=== PATIENT | female | born 1945 | race Caucasian/White ===

== ENCOUNTER → 2017-01-08 | Outpatient (CLI) | payer MEDICARE, BC ==
--- NOTE | ~2017-01-08 | US6 ---
[facility] A Service of [facility] RADIOLOGY TEXT RESULTS PATIENT: CAROLINE PINZON LOCATION: [facility] : 43 UNIT #: [id number] AGE: [address]: Ru Lozano MD SEX: F ORDER DR: [id number] [facility] [address] [place], [place] [address] [id number] O MR#: [id number] Acc #: [id number] NAME: CAROLINE PINZON : 1945 SEX: F STUDY DATE/TIME: 01/08/2017 10:42 UNIT: [facility] ROOM: STUDY DESCRIPTION: US Abdominal Limited Attending Physician: Ru Lozano M.D. Referring Physician: Ru Lozano M.D. Ordering Physician: Ru Lozano M.D. Primary Care Physician: Amelia Pyle M.D. MEDICAL IMAGING REPORT This report is preliminary unless electronic signature is present EXAM Right upper quadrant ultrasound, 01/08/2017 INDICATION Nonalcoholic steatohepatitis diagnosed 2 years ago. Elevated liver function tests, appendectomy, cholecystectomy, abdominal pain for years. TECHNIQUE Sonographic imaging of the right upper quadrant was performed. COMPARISON 11/15/2015 FINDINGS The pancreas is not well visualized or assessed. Visualized aspects are unremarkable. The gallbladder is surgically absent. There is a coarsened hepatic echotexture with imaging features most characteristic of report history of cirrhosis. No focal liver mass, ascites or intrahepatic ductal dilatation. The liver measures 17.9 cm long axis. The right kidney is nonobstructed measuring 13.9 cm long axis. There is an upper pole cyst in the right kidney measuring up to 3.9 cm, larger than on the prior study but otherwise maintaining benign characteristics. No internal color-flow identified. Extrahepatic common bile duct measures 5.0-6.0 mm. IMPRESSION 1. Imaging features most characteristic of reported history of cirrhosis. No ascites or new focal liver mass. 2. Surgical absence of the gallbladder with the extrahepatic common bile duct in the top normal range of normal with a diameter of 5.0-6.0 mm. 3. Interval enlargement of an upper pole renal cyst on the right now STS. [facility] A Service of [facility] RADIOLOGY TEXT RESULTS PATIENT: CAROLINE PINZON LOCATION: [facility] : 43 UNIT #: [id number] AGE: [address]: Ru Lozano MD SEX: F ORDER DR: measuring up to 3.9 cm. Dictated by... Hola Pérez M.D. THIS IS AN ELECTRONICALLY VERIFIED REPORT Hola Pérez M.D. at 01/08/2017 11:52 AM Glenn TD: 01/08/2017 11:33 JOB #: [id number] MEDICAL IMAGING REPORT Page 1 of 1 COPY
== END | disposition home or self-care (01) ==
LOC: CGUS 10:05
DX: K74.60 Unspecified cirrhosis of liver (principal); K29.50 Unspecified chronic gastritis without bleeding; K44.9 Diaphragmatic hernia without obstruction or gangrene; K75.81 Nonalcoholic steatohepatitis (NASH); K30 Functional dyspepsia; R93.3 Abnormal findings on diagnostic imaging of other parts of digestive tract; R94.5 Abnormal results of liver function studies; R14.0 Abdominal distension (gaseous); R10.84 Generalized abdominal pain; N28.1 Cyst of kidney, acquired; Z86.010 Personal history of colon polyps; Z90.49 Acquired absence of other specified parts of digestive tract; Z80.0 Family history of malignant neoplasm of digestive organs; Z83.71 Family history of colonic polyps
CPT/HCPCS: 76705